=== PATIENT | male | born 1995 | race African-American/Black ===

== ENCOUNTER 2020-10-16 02:58 | Emergency (ER) | payer MEDICAID ==
[~2020-10-16] VITALS: Ht 177.8 cm; Wt 113.0 kg
[2020-10-16 03:39] VITALS: BP 141/91
[2020-10-16] MEDS ORDERED: AZITHROMYCIN 500 MG TABLET PO ONE (03:45)
[2020-10-16] MEDS ORDERED: CEFTRIAXONE SODIUM 500 MG/VIAL IM ONE (03:45)
[2020-10-16 03:51] LABS: CLARITY URINE CLEAR (CLEAR); COLOR URINE YELLOW (YELLOW); KETONES URINE TRACE (NEGATIVE); LEUKOCYTE ESTERASE URINE 1+ (NEGATIVE); NITRITE URINE NEGATIVE (NEGATIVE); OCCULT BLOOD URINE NEGATIVE (NEGATIVE); PROTEIN URINE NEGATIVE (NEGATIVE); SPECIFIC GRAVITY URINE 1.021 (1.005-1.030)
== END 2020-10-16 04:57 | disposition home or self-care (01) ==
LOC: ER 02:58
DX: A64 Unspecified sexually transmitted disease (principal); N34.2 Other urethritis
CPT/HCPCS: 81003; 96372; 99283; J0696

== ENCOUNTER 2020-10-26 05:44 | Emergency (ER) | payer MEDICAID ==
[~2020-10-26] VITALS: Ht 180.3 cm; Wt 109.0 kg
[2020-10-26 06:04] VITALS: BP 124/81
[2020-10-26 07:18] LABS: CLARITY URINE CLEAR (CLEAR); COLOR URINE YELLOW (YELLOW); KETONES URINE TRACE (NEGATIVE); LEUKOCYTE ESTERASE URINE 1+ (NEGATIVE); NITRITE URINE NEGATIVE (NEGATIVE); OCCULT BLOOD URINE NEGATIVE (NEGATIVE); PROTEIN URINE NEGATIVE (NEGATIVE); SPECIFIC GRAVITY URINE 1.025 (1.005-1.030)
[2020-10-26] MEDS ORDERED: DOXY100C2 MT (10:11)
[2020-10-26] MEDS ORDERED: CEFTRIAXONE SODIUM 500 MG/VIAL IM ONE (10:15)
[2020-10-26] MEDS ORDERED: LIDOCAINE HCL 1% 20ML VIAL (Pyxis) INJ INFIL ONE (10:15)
[2020-10-28 07:09] LABS: NEISSERIA GONORRHOEAE NAA Negative (Negative)
== END 2020-10-26 11:07 | disposition home or self-care (01) ==
LOC: ER 05:49
DX: N34.2 Other urethritis (principal); R36.9 Urethral discharge, unspecified; R30.0 Dysuria
CPT/HCPCS: 81003; 87086; 87491; 87591; 96372; 99283; J0696; J3490; Z7610

== ENCOUNTER 2021-01-03 06:52 | Emergency (ER) | payer MEDICAID ==
[~2021-01-03] VITALS: Ht 180.3 cm; Wt 109.0 kg
[~2021-01-03 06:52] MED LIST: DOXY100C2 MT
[2021-01-03 06:53] VITALS: BP 133/86
[2021-01-03] MEDS ORDERED: CEFTRIAXONE SODIUM 500 MG/VIAL IM ONE (07:15)
[2021-01-03] MEDS ORDERED: DOXY100C2 MT (08:34)
[2021-01-04 19:06] LABS: NEISSERIA GONORRHOEAE NAA Negative (Negative)
== END 2021-01-03 08:44 | disposition home or self-care (01) ==
LOC: ER 06:52
DX: Z20.2 Contact with and (suspected) exposure to infections with a predominantly sexual mode of transmission (principal)
CPT/HCPCS: 87491; 87591; 96372; 99283; J0696